=== PATIENT | female | born 1945 | race African-American/Black ===

== ENCOUNTER 2017-05-11 16:33 | Inpatient (IN) | payer OTHER, MEDICAID ==
[~2017-05-11] VITALS: Ht 167.6 cm; Wt 82.7 kg
[2017-05-11] MEDS ORDERED: SODIUM CHLORIDE 0.9% 1,000 ML IV ONE (16:53)
[2017-05-11] MEDS ORDERED: InsuLIN REG 1unit/0.01ml Soln (100units/ml) IV ONE (17:00)
[2017-05-11 17:25] LABS: Allen Test Yes; Blood 02Sat 93.7 % (96-100); Blood COHb 0.4 % (0.5-1.5); Blood MetHb 0.2 % (0.0-1.5); HCO3 25.6 mmol/L (22-26.0); HHb 6.3 % (0.0-5.0); MODE ROOM AIR; O2Hb 93.1 % (94.0-97.0); PCO2 36.9 mmHg (35.0-45.0); PCO2(T) 36.9 mmHg (35.0-45.0); PO2 70.2 mmHg (80.0-100.0); PO2(T) 70.2 mmHg (80.0-100.0); Sample Type Arterial; pH 7.459 (7.350-7.450)
[2017-05-11 17:28] LABS: Basophils # (auto) 0.1 uL; Basophils % (auto) 0.9 % (0.0-2.0); Eosinophils # (auto) 0.2 uL; Hematocrit 43.8 % (36.0-46.0); Hemoglobin 14.2 g/dL (12.2-16.2); Lymphocytes # (auto) 2.2 uL; Lymphocytes % (auto) 28.5 % (10.0-50.0); Mean Corpuscular Hgb Conc. 32.5 g/dL (32.0-36.0); Mean Corpuscular Volume 86.1 fL (80.0-100.0); Mean Platelet Volume 10.7 fL (6.9-10.8); Monocytes # (auto) 0.5 uL; Monocytes % (auto) 6.5 % (0.0-12.0); Neutrophils # (auto) 4.7 uL; Neutrophils % (auto) 62.1 % (37.0-80.0); Platelet Count (auto) 134 10^3/uL (140-450); Red Cell Distribution Width 14.5 % (11.8-14.3); White Blood Cell 7.6 10^3/uL (4.4-10.8)
[2017-05-11 17:46] LABS: Albumin 3.4 g/dL (3.4-5.0); Anion Gap 9 (5-15); Aspartate Aminotransferase 18 U/L (15-37); BUN/Creatinine Ratio 13.4; Blood Urea Nitrogen 28 mg/dL (7-18); Carbon Dioxide 26 mmol/L (21-32); Chloride 92 mmol/L (98-107); GFR African American 30 mL/min; GFR Non-African American 25 mL/min; Potassium 4.1 mmol/L (3.5-5.1); Sodium 127 mmol/L (136-145)
[2017-05-11 17:48] LABS: Bilirubin, Total 0.7 mg/dL (0.2-1.0); Total Protein 7.7 g/dL (6.4-8.2)
[2017-05-11 17:55] LABS: Alkaline Phosphatase 159 U/L (45-117); Magnesium 2.3 mg/dL (1.6-2.6)
[2017-05-11 18:07] LABS: Glucose 815 mg/dL (74-106)
[2017-05-11] MEDS ORDERED: SODIUM CHLORIDE 0.9% 500 ML IV ONE (18:45)
[2017-05-11 21:02] LABS: Urine RBC None Seen /hpf (0 - 4)
[2017-05-11 21:38] LABS: Urine Bilirubin Negative (Negative); Urine Blood Negative /uL (Negative); Urine Glucose 4+ mg/dL (Normal); Urine Ketone Negative (Negative); Urine Nitrite Negative (Negative); Urine Squamous Epithelial Cell FEW /hpf (<5); Urine Urobilinogen Normal (Negative)
[2017-05-11 22:09] LABS: Urine Color Straw (Yellow)
[2017-05-12] MEDS ORDERED: InsuLIN REG 1unit/0.01ml Soln (100units/ml) IV ONE (02:30)
[2017-05-12] MEDS ORDERED: SODIUM CHLORIDE 0.9% 1,000 ML IV ONE ×2 (02:30→05:45)
[2017-05-12] MEDS ORDERED: DEXTROSE (50%) 50ML SYRG IV PRN (05:30)
[2017-05-12 06:10] LABS: Basophils # (auto) 0.1 uL; Basophils % (auto) 0.6 % (0.0-2.0); Eosinophils # (auto) 0.3 uL; Eosinophils % (auto) 2.9 % (0.0-7.0); Hematocrit 41.3 % (36.0-46.0); Hemoglobin 14.1 g/dL (12.2-16.2); Lymphocytes # (auto) 3.7 uL; Lymphocytes % (auto) 39.2 % (10.0-50.0); Mean Corpuscular Hemoglobin 28.3 pg (28.0-32.0); Mean Corpuscular Hgb Conc. 34.2 g/dL (32.0-36.0); Mean Corpuscular Volume 82.8 fL (80.0-100.0); Mean Platelet Volume 10.2 fL (6.9-10.8); Monocytes # (auto) 0.6 uL; Neutrophils # (auto) 4.8 uL; Neutrophils % (auto) 51.3 % (37.0-80.0); Nucleated Red Blood Cells % 0.2 %; Platelet Count (auto) 129 10^3/uL (140-450); Red Cell Distribution Width 14.4 % (11.8-14.3); White Blood Cell 9.4 10^3/uL (4.4-10.8)
[2017-05-12 06:22] LABS: BUN/Creatinine Ratio 14.8; Calcium 8.9 mg/dL (8.5-10.1); Potassium 3.5 mmol/L (3.5-5.1)
[2017-05-12] MEDS ORDERED: SODIUM CHLORIDE 0.9% 500 ML IV ONE (08:00)
[2017-05-12] MEDS: ACCU-CHEK COMFORT CURVE STRIP VI SCH ×4 (08:03→20:27)
[2017-05-12] MEDS: InsuLIN REG 1unit/0.01ml Soln (100units/ml) SC SCH ×4 (08:06→20:27)
[2017-05-12 13:57] VITALS: BP 111/69
[2017-05-12 17:27] VITALS: BP 114/65
[2017-05-12 20:00] VITALS: BP 114/64
[2017-05-12] MEDS: INSULIN DETEMIR(LEVEMIR) 1unit/0.01ml Soln (100units/ml) SC SCH (22:20)
[2017-05-12 22:53] VITALS: BP 114/64
[2017-05-13] VITALS (7 sets, daily range): BP systolic 109–132; BP diastolic 56–68
[2017-05-13] MEDS: ACCU-CHEK COMFORT CURVE STRIP VI SCH ×6 (00:04→22:20)
[2017-05-13] MEDS: InsuLIN REG 1unit/0.01ml Soln (100units/ml) SC SCH ×5 (00:05→17:14)
[2017-05-13] MEDS ORDERED: DEXTROSE (50%) 50ML SYRG IV PRN (10:30)
[2017-05-13] MEDS: INSULIN DETEMIR(LEVEMIR) 1unit/0.01ml Soln (100units/ml) SC SCH ×2 (10:38→22:22)
[2017-05-13] MEDS ORDERED: InsuLIN REG 1unit/0.01ml Soln (100units/ml) SC SCH (22:00)
[2017-05-14 05:00] VITALS: BP 108/67
[2017-05-14] MEDS: InsuLIN REG 1unit/0.01ml Soln (100units/ml) SC SCH ×3 (06:20→17:00)
[2017-05-14] MEDS: ACCU-CHEK COMFORT CURVE STRIP VI SCH ×3 (06:21→17:00)
[2017-05-14 08:58] VITALS: BP 110/71
[2017-05-14] MEDS: INSULIN DETEMIR(LEVEMIR) 1unit/0.01ml Soln (100units/ml) SC SCH (10:00)
[2017-05-14 13:31] VITALS: BP 104/61
[2017-05-14 14:51] VITALS: BP 121/67
== END 2017-05-14 19:11 | disposition home or self-care (01) | DRG 638 ==
LOC: ER 16:33 → OVERFLOW 16:34 → EAST 05-12 09:43
PROVIDERS: ADMIT Nurse Practitioner Family; ATTEND Internal Medicine Pulmonary Disease
DX: E11.65 Type 2 diabetes mellitus with hyperglycemia (principal); N17.9 Acute kidney failure, unspecified; I95.9 Hypotension, unspecified; E86.0 Dehydration; E78.5 Hyperlipidemia, unspecified; K21.9 Gastro-esophageal reflux disease without esophagitis; I10 Essential (primary) hypertension; E66.9 Obesity, unspecified
CPT/HCPCS: 36415; 36600; 71010; 80048; 80053; 81001; 82010; 82805; 82962; 83036; 83735; 84484; 85025; 93005; 94761; 96361; 96374; 99291; J1815

== ENCOUNTER 2018-10-10 19:48 | Emergency (ER) | payer OTHER, MEDICAID ==
[~2018-10-10] VITALS: Ht 162.6 cm; Wt 79.4 kg
[~2018-10-10 19:48] MED LIST: AML5T PO; LISI-646 PO; NITR1SPR TL
[2018-10-10] MEDS ORDERED: SUCCINYLCHOLINE CHLORIDE 20 MG/ML 10ML VIAL IV ONE ×2 (19:53→20:15)
[2018-10-10] MEDS ORDERED: diphenhdrAMINE HCL 50 MG/1 ML VL ONE (19:53)
[2018-10-10] MEDS ORDERED: methylPREDNISolone SOD SUCC 125 MG/2 ML VL ONE (19:53)
[2018-10-10] MEDS ORDERED: PROPOFOL 100 ML IV ONE ×2 (19:53→21:32)
[2018-10-10] MEDS ORDERED: EPINEPHrine HCL 1 MG/10 ML SYRG IV ONE ×3 (19:54→20:45)
[2018-10-10] MEDS ORDERED: EPINEPHrine HCL 1 MG/10 ML SYRG ONE (20:11)
[2018-10-10] MEDS ORDERED: ONDANSETRON HCL 4 MG/2 ML VIAL ONE (20:12)
[2018-10-10] MEDS ORDERED: diphenhdrAMINE HCL 50 MG/1 ML VL IV ONE (20:15)
[2018-10-10] MEDS ORDERED: PROPOFOL 10 MG/ML 20 ML IV ONE ×2 (20:15→20:45)
[2018-10-10] MEDS ORDERED: methylPREDNISolone SOD SUCC 125 MG/2 ML VL IV ONE (20:15)
[2018-10-10] MEDS: PROPOFOL 100 ML IV SCH ×2 (20:20→22:00)
[2018-10-10] MEDS ORDERED: LORazepam 2MG/ML-1ML VIAL ONE (20:25)
[2018-10-10] MEDS ORDERED: ONDANSETRON HCL 4 MG/2 ML VIAL IV ONE (20:30)
[2018-10-10] MEDS ORDERED: ROCURONIUM 10MG/ML 10ML VIAL IV ONE ×2 (20:34→20:45)
[2018-10-10] MEDS ORDERED: LORazepam 2MG/ML-1ML VIAL IV ONE (20:45)
[2018-10-10] MEDS ORDERED: NOREPINEPHRINE 8 MG/250ML KIT 250 ML IV SCH (20:58)
[2018-10-10] MEDS ORDERED: NOREPINEPHRINE 8 MG/250ML KIT 250 ML IV ONE (21:01)
[2018-10-10 21:07] LABS: Urine Bacteria MOD /hpf (None Seen); Urine Blood Negative /uL (Negative); Urine Mucus FEW (None Seen); Urine Specific Gravity 1.016 (1.001-1.035); Urine WBC 33 /hpf (0 - 5)
[2018-10-10 21:08] LABS: Basophils # (auto) 0.1 uL; Basophils % (auto) 0.7 % (0.0-2.0); Eosinophils # (auto) 0.1 uL; Eosinophils % (auto) 0.9 % (0.0-7.0); Hematocrit 36.8 % (36.0-46.0); Lymphocytes # (auto) 4.3 uL; Lymphocytes % (auto) 33.6 % (10.0-50.0); Mean Corpuscular Hemoglobin 27.1 pg (28.0-32.0); Mean Corpuscular Hgb Conc. 32.6 g/dL (32.0-36.0); Mean Corpuscular Volume 83.3 fL (80.0-100.0); Monocytes % (auto) 7.7 % (0.0-12.0); Neutrophils # (auto) 7.4 uL; Neutrophils % (auto) 57.1 % (37.0-80.0); Nucleated Red Blood Cells % 0.1 %; Platelet Count (auto) 176 10^3/uL (140-450); Red Blood Cells 4.42 10^6/uL (4.0-5.20); Red Cell Distribution Width 15.6 % (11.8-14.3); White Blood Cell 12.9 10^3/uL (4.4-10.8)
[2018-10-10 21:22] LABS: Albumin 3.7 g/dL (3.4-5.0); BUN/Creatinine Ratio 14.9; Calcium 9.2 mg/dL (8.5-10.1); Potassium 3.5 mmol/L (3.5-5.1)
[2018-10-10 21:24] LABS: Bilirubin, Total 0.3 mg/dL (0.2-1.0); Total Protein 7.9 g/dL (6.4-8.2)
[2018-10-10] MEDS ORDERED: PROPOFOL 100 ML IV SCH (21:36)
[2018-10-10] MEDS ORDERED: IOHEXOL 350 MG/ML 100ML IJ ONE (22:09)
[2018-10-10 22:14] LABS: Lactic Acid w/Reflex 4.3 mmol/L (0.4-2.0)
[2018-10-10] MEDS ORDERED: SODIUM CHLORIDE 0.9% 1,000 ML IV ONE (22:15)
[2018-10-10 23:44] VITALS: BP 109/57
== END 2018-10-11 00:37 | disposition short-term general hospital (02) ==
LOC: EDBD 19:48 → ER 19:53
DX: J95.851 Ventilator associated pneumonia (principal)
CPT/HCPCS: 31500; 36415; 36600; 51702; 71045; 80053; 81001; 82805; 83605; 85025; 86850; 86900; 86901; 87070; 87077; 87186; 87205; 96365; 96375; 96376; 99291; J0171; J0330; J1200; J2060; J2405; J2704; J2930; Q9967; 94002